=== PATIENT | female | born 1940 | race Caucasian/White ===

== ENCOUNTER 2020-05-19 09:22 | Day surgery (SDC) | payer MEDICARE, OTHER ==
[2020-05-19] MEDS ORDERED: Lactated Ringers 1,000 ML IV ONE (09:44)
[2020-05-19] MEDS ORDERED: Lactated Ringers 1,000 ML IV SCH (10:00)
[2020-05-19] MEDS ORDERED: DIPRIVAN 200 MG/20 ML IV ONE (12:03)
[2020-05-19] MEDS ORDERED: Xylocaine-Mpf 2% 5 Ml Vial ONE (12:03)
[2020-05-19 13:52] VITALS: BP 153/82; PULSE 76; O2SAT 94
--- NOTE | 2020-05-20 08:02 | HP ---
HISTORY: This is a patient who presents with left upper quadrant abdominal pain and left mid abdominal pain. PAST MEDICAL/SURGICAL HISTORY: Hypertension, emphysema, arrhythmia, tonsillectomy, cholecystectomy, appendectomy, hysterectomy, partial colectomy for ischemic colitis. MEDICATIONS: Please see list. ALLERGIES: Please see list. These were all confirmed. FAMILY HISTORY: Cancer, lung disease, kidney disease. PHYSICAL EXAMINATION: GENERAL: No acute distress. CVS: Regular rate and rhythm. PULMONARY: Nonlabored. ABDOMEN: Soft, tender to palpation left upper quadrant and left mid abdomen. No rebound. No guarding. EXTREMITIES: Normal. DIAGNOSIS: Left upper quadrant and left abdominal pain. PLAN: EGD and colonoscopy. The patient does continue to have this left upper quadrant, it is moderate and per exam today is similar to as in office. We are going to proceed with her EGD. She has had labs, CT scan all reviewed with her as well. Postoperatively I will be following with her to continue to figure out the culprit of her pain.
--- NOTE | 2020-05-20 10:09 | OP ---
PROCEDURE DATE/TIME: 05/19/2020 1205 PREOPERATIVE DIAGNOSIS: Left upper quadrant pain and left abdominal pain, change in bowel habits. POSTOPERATIVE DIAGNOSES: 1) Mild hemorrhagic gastritis. 2) Peptic ulcer disease with ulcers in the gastric antrum and duodenum. 3) Small hiatal hernia approximately 2 cm. 4) Gastroesophageal reflux disease. 5) Mild duodenitis. 6) Severe external hemorrhoidal disease with mild internal hemorrhoidal disease. 7) Patent colocolonic anastomosis at 32 cm. 8) Rectosigmoid polyp at 13 cm. PROCEDURES: 1) EGD with biopsies. 2) Colonoscopy with hot snare polypectomy. PROCEDURE PERFORMED BY: Ewa Menjivar M.D. ANESTHESIA: MAC. ESTIMATED BLOOD LOSS: Minimal. COMPLICATIONS: None. SPECIMENS: 1) Duodenal ulcer/lesion biopsies. 2) Distal esophagus; rule out Ortega's biopsies. 3) Gastric antrum biopsies. PLAN: EGD in three months. Colonoscopy in three years. Proton pump inhibitor and Carafate therapy for ulcer disease. HISTORY: This is a 80 year-old female with significant left upper quadrant and then left mid abdominal pain. She presents for EGD and colonoscopy. Risks, benefits and alternatives reviewed with her. H&P and consent as well as any remaining questions reviewed with her and confirmed prior to being wheeled back to the endoscopy suite. DESCRIPTION OF PROCEDURE: She was then wheeled back to the endoscopy suite, laid in the left lateral decubitus position. A complete time out was performed. The scope gently introduced in the mouth, oropharynx, down to the esophagus, stomach and duodenum. Multiple findings were noted. Immediately upon entering the stomach there was a trace amount of old blood throughout the stomach. She had approximately three small peptic ulcers approximately 5 to 8 mm in size. No active bleeding. No visible vessels. As we entered the duodenum in D1, she had an ulcer with inflammation. There appeared to be a central crater. However this almost looked like an appearance of either an ulcer or diverticulum. I biopsied the periphery of the ulcerative lesion to send this to pathology and we will treat this and on our rescope we will be able to visualize this better once the inflammation has healed. The remainder of the duodenum distal to this was normal. The antrum was visualized and this was normal. D2 and D3 were normal. The scope was then further withdrawn back into the stomach. We did a retroflex view. She does have a small hiatal hernia. Again, we saw gastritis as well as some old blood. No other significant findings. The scope was then withdrawn to the distal esophagus where she had reflux changes. I biopsied her to test for microscopic Ortega's disease. She had at least a 2 cm hiatal hernia sliding type. Then the scope was further withdrawn. The remainder of the esophagus looked normal. All biopsy sites were hemostatic. The patient tolerated this part of the procedure well. She was then repositioned for colonoscopy. First, a rectal exam was done. The patient had significant external hemorrhoids involving all quadrants. The scope was then inserted and gently navigated to the cecum. The patient did have a moderate amount of liquid stool. After suctioning and irrigating this, we had a satisfactory prep and satisfactory view. We carefully withdrew the colonoscope. The patient's colon was normal. She had a patent anastomosis at 32 cm without issue. She also had a rectosigmoid polyp at 15 cm semi-pedunculated approximately 8 mm this was taken with hot snare retrieved. Site looked hemostatic. The remainder of the rectum looked normal. Minimal internal hemorrhoids and then the scope was completely withdrawn. The patient tolerated the procedure very well and no complications. She will be following up with me in the office due to symptoms, to follow her treatment and to discuss her pathology report.
== END 2020-05-19 14:10 | disposition home or self-care (01) ==
LOC: SDC 09:22
PROVIDERS: ATTEND Surgery
DX: K29.71 Gastritis, unspecified, with bleeding (principal); K25.9 Gastric ulcer, unspecified as acute or chronic, without hemorrhage or perforation; K21.9 Gastro-esophageal reflux disease without esophagitis; K29.80 Duodenitis without bleeding; K64.4 Residual hemorrhoidal skin tags; K64.8 Other hemorrhoids; K63.5 Polyp of colon; K22.70 Barrett's esophagus without dysplasia; K44.9 Diaphragmatic hernia without obstruction or gangrene; Z79.899 Other long term (current) drug therapy
CPT/HCPCS: J2704

== ENCOUNTER 2020-07-14 08:29 | Day surgery (SDC) | payer MEDICARE, OTHER ==
[2020-07-14] MEDS ORDERED: Lactated Ringers 1,000 ML IV SCH (10:00)
[2020-07-14] MEDS ORDERED: DIPRIVAN 200 MG/20 ML IV ONE (10:37)
[2020-07-14] MEDS ORDERED: Xylocaine-Mpf 2% 5 Ml Vial ONE (10:37)
[2020-07-14 12:34] VITALS: BP 137/82; PULSE 69; O2SAT 94
--- NOTE | 2020-07-14 13:28 | HP ---
HISTORY OF PRESENT ILLNESS: This is a patient who has history of peptic ulcer disease. She is here for surveillance EGD to insure healing and resolution. PAST MEDICAL/SURGICAL HISTORY: Includes peptic ulcer disease, hypertension, emphysema, COPD, irregular heart rate, prior EGD and colonoscopy, tonsillectomy, cholecystectomy, appendectomy, hysterectomy. MEDICATIONS: Medications reviewed. See list. ALLERGIES: MULTIPLE ALLERGIES REVIEWED. SEE LIST. FAMILY HISTORY: Multiple cancers. PHYSICAL EXAMINATION: GENERAL: No acute distress. CVS: Regular rate and rhythm. PULMONARY: Nonlabored. ABDOMEN: Soft, nontender, nondistended. Improved since her last exam. EXTREMITIES: Normal. DIAGNOSIS: Peptic ulcer disease, Ortega's disease. PLAN: EGD.
--- NOTE | 2020-07-14 13:43 | OP ---
PROCEDURE DATE/TIME: 07/14/2020 1105 PREOPERATIVE DIAGNOSIS: Peptic ulcer disease. POSTOPERATIVE DIAGNOSIS: Residual gastritis, resolved/healed peptic ulcer disease, stable Ortega's disease. PROCEDURE: EGD. PROCEDURE PERFORMED BY: Ewa Menjivar M.D. ESTIMATED BLOOD LOSS: None. ANESTHESIA: MAC. COMPLICATIONS: None. SPECIMEN: None. HISTORY: This is a 80 year-old female who presents for surveillance EGD due to peptic ulcer disease. Risks, benefits, alternatives, H&P discussed with her and reviewed and confirmed. DESCRIPTION OF PROCEDURE: She was brought back to the endoscopy suite, laid in the left lateral decubitus position. A complete time out performed. The scope gently introduced into the mouth, oropharynx, down into the esophagus, stomach, duodenum. The duodenum was normal and at her baseline. The stomach had some residual gastritis in the antrum where she had the significant ulcer. No active ulcers anymore. The ulcers have healed. On retroflex view the remainder of her stomach looked normal. The scope was then subsequently withdrawn. 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 No other findings. The patient needs an EGD at approximately one year interval from her biopsy so tentatively 05/25/2021. We will need to continue her proton pump inhibitor due to her reflux and her Ortega's but I will stop her Carafate.
== END 2020-07-14 12:29 | disposition home or self-care (01) ==
LOC: SDC 08:29
PROVIDERS: ATTEND Surgery
DX: Z09 Encounter for follow-up examination after completed treatment for conditions other than malignant neoplasm (principal); Z87.11 Personal history of peptic ulcer disease; K29.70 Gastritis, unspecified, without bleeding; K22.70 Barrett's esophagus without dysplasia
CPT/HCPCS: 99100; J2704